=== PATIENT | male | born 2000 | race Hispanic/Latino ===

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

== ENCOUNTER 2018-03-21 15:04 | Emergency (ER) | payer OTHER, SELFPAY ==
[2018-03-21] MEDS ORDERED: Ibuprofen 600 MG TAB ONE (15:46)
--- NOTE | 2018-03-21 16:06 | RAD ---
LEFT HAND 3 VIEWS: Date: 03/21/18 HISTORY: Hand injury. FINDINGS: There is an obliquely oriented interarticular fracture involving the ulnar side of the base of the pr oximal phalanx of the index finger. IMPRESSION: Proximal phalanx index finger interarticular fracture involving the ulnar side of the base of the pro ximal phalanx. No displacement. POS: [facility]
== END 2018-03-21 16:00 | disposition home or self-care (01) ==
LOC: MADERS 15:04
DX: S62.641A Nondisplaced fracture of proximal phalanx of left index finger, initial encounter for closed fracture (principal); F17.210 Nicotine dependence, cigarettes, uncomplicated; W09.8XXA Fall on or from other playground equipment, initial encounter; Y93.51 Activity, roller skating (inline) and skateboarding
CPT/HCPCS: Q4049

== ENCOUNTER 2018-04-23 09:45 | Emergency (ER) | payer OTHER ==
[2018-04-23] MEDS ORDERED: Oseltamivir 75 MG CAP ONE (10:43)
[2018-04-23] MEDS ORDERED: Ibuprofen 800 MG TAB ONE (10:43)
[2018-04-23] MEDS ORDERED: Benzonatate 100 MG CAP ONE (10:43)
== END 2018-04-23 10:50 | disposition home or self-care (01) ==
LOC: MADERS 09:45
DX: J10.1 Influenza due to other identified influenza virus with other respiratory manifestations (principal); R05 Cough; F17.210 Nicotine dependence, cigarettes, uncomplicated; F90.9 Attention-deficit hyperactivity disorder, unspecified type
CPT/HCPCS: 87804; 99284

== ENCOUNTER 2018-08-03 22:05 | Emergency (ER) | payer SELFPAY ==
[2018-08-03] MEDS ORDERED: Lidocaine 2% w/Epinephrine 1:200K 20 ML VIAL ONE ×2 (22:27→22:28)
[2018-08-03] MEDS ORDERED: Adacel (T-DAP) 0.5 ML SYRINGE ONE (22:37)
[2018-08-03] MEDS ORDERED: Sulfameth/Trimethoprim DS 800-160mg TAB ONE (22:42)
== END 2018-08-04 00:31 | disposition home or self-care (01) ==
LOC: MADERS 22:05
DX: L02.415 Cutaneous abscess of right lower limb (principal); F17.210 Nicotine dependence, cigarettes, uncomplicated
CPT/HCPCS: 10060; 90471; 90715

== ENCOUNTER 2019-06-23 12:20 | Emergency (ER) | payer OTHER, SELFPAY ==
[2019-06-23] MEDS ORDERED: Ondansetron ODT 4 MG TAB ONE (12:56)
== END 2019-06-23 13:05 | disposition home or self-care (01) ==
LOC: MADERS 12:20
DX: K52.9 Noninfective gastroenteritis and colitis, unspecified (principal); F90.9 Attention-deficit hyperactivity disorder, unspecified type; F17.290 Nicotine dependence, other tobacco product, uncomplicated
CPT/HCPCS: 99283; Q0162

== ENCOUNTER 2021-02-01 08:39 | Emergency (ER) | payer BC, OTHER ==
[2021-02-01] MEDS ORDERED: Fluorescein Opthalmic Strip ONE (09:03)
[2021-02-01] MEDS ORDERED: predniSONE 20 MG TAB ONE (09:23)
== END 2021-02-01 09:34 | disposition home or self-care (01) ==
LOC: MADERS 08:39
DX: H10.10 Acute atopic conjunctivitis, unspecified eye (principal)
CPT/HCPCS: 99283; J7512